=== PATIENT | female | born 1975 | race Caucasian/White ===

== ENCOUNTER 2017-10-01 17:36 | Emergency (ER) | payer MEDICAID ==
[2017-10-01 17:49] VITALS: TEMP 99.3
[2017-10-01] MEDS ORDERED: Sodium Chloride 0.9% 1,000 ML IV ONE (17:57)
[2017-10-01 18:28] LABS: BASO # 0.1 K/uL (0.0-0.2); EOS # 0.1 K/uL (0.0-0.7); EOS % 1.2 % (0.0-4.0); HEMOGLOBIN 14.8 g/dL (11.0-16.0); LYMPH # 2.7 K/uL (1.0-4.3); LYMPH % 35.7 % (20.0-40.0); MEAN CORPUSCULAR HEMOGLOBIN 30.6 pg (27.0-31.0); MEAN PLATELET VOLUME 9.3 fL (7.2-11.7); MONO # 0.4 K/uL (0.0-0.8); MONO % 5.6 % (0.0-10.0); NEUT # 4.3 K/uL (1.8-7.0); NEUT % 56.5 % (50.0-75.0); NRBC % 0.1 % (0.0-2.0); RBC 4.84 Mil/uL (3.80-5.20); WHITE BLOOD COUNT 7.6 K/uL (4.8-10.8)
[2017-10-01 18:30] LABS: URINE BILIRUBIN NEGATIVE (NEGATIVE); URINE BLOOD NEGATIVE (NEGATIVE); URINE CLARITY Clear (Clear); URINE COLOR Straw (YELLOW); URINE GLUCOSE (UA) 3+ mg/dL (Normal); URINE LEUKOCYTE ESTERASE NEG Leu/uL (Negative); URINE PROTEIN NEGATIVE (NEGATIVE); URINE UROBILINOGEN NORMAL mg/dL (0.2-1.0)
[2017-10-01 18:34] LABS: HCG,QUALITATIVE URINE NEGATIVE (NEGATIVE)
[2017-10-01 18:43] LABS: ALB/GLOB RATIO 1.2 (1.0-2.1); ALBUMIN 4.2 g/dL (3.5-5.0); ALT/SGPT 28 U/L (9-52); AST/SGOT 26 U/L (14-36); BLOOD UREA NITROGEN 10 mg/dL (7-17); CALCIUM 9.3 mg/dl (8.6-10.4); GFR AFRICAN-AMERICAN > 60; GFR NON-AFRICAN AMERICAN > 60
[2017-10-01] MEDS ORDERED: (Novolin R) Insulin Human Regular 100 units/ml vial IV STA (18:51)
[2017-10-01] MEDS ORDERED: (Novolin R) Insulin Human Regular 100 units/ml vial ONE (19:04)
[2017-10-01 20:03] VITALS: BP 132/71; PULSE 80; RESP 16
[2017-10-01 20:04] VITALS: O2SAT 100
--- NOTE | 2017-10-01 20:04 | C.PDOC ---
Time Seen by Provider: 10/01/17 17:52 Chief Complaint (Nursing): High Blood Sugar History Per: Patient, Family Onset/Duration Of Symptoms: Days (months) Current Symptoms Are (Timing): Still Present Severity: Moderate Current Diabetic Medications: None Associated Infectious Symptoms: Urinary Frequency, Other (Polydipsia) Treatment Prior To Provider Evaluation: None Additional History Per: Prior Records Past Medical History Reviewed: Historical Data, Nursing Documentation, Vital Signs Vital Signs: Last Vital Signs Temp 99.3 F 10/01/17 17:44 Pulse 80 10/01/17 20:02 Resp 16 10/01/17 20:02 BP 132/71 10/01/17 20:02 Pulse Ox 100 10/01/17 20:04 - Medical History PMH: HTN Surgical History: Family History: States: Unknown Family Hx - Social History Hx Tobacco Use: No Hx Alcohol Use: No Hx Substance Use: No - Immunization History Hx Tetanus Toxoid Vaccination: Yes Hx Influenza Vaccination: No Hx Pneumococcal Vaccination: No Review Of Systems Except As Marked, All Systems Reviewed And Found Negative. Constitutional: Negative for: Fever, Weakness Cardiovascular: Negative for: Chest Pain Respiratory: Negative for: Shortness of Breath Gastrointestinal: Negative for: Vomiting, Abdominal Pain Genitourinary: Positive for: Frequency. Negative for: Dysuria, Incontinence, Hematuria Musculoskeletal: Negative for: Neck Pain, Back Pain Skin: Negative for: Rash Neurological: Negative for: Weakness, Numbness, Seizures, Altered Mental Status Physical Exam - Physical Exam Appears: Non-toxic, No Acute Distress Skin: Normal Color, Warm, Dry, No Rash Head: Atraumatic, Normacephalic Eye(s): bilateral: Normal Inspection, PERRL, EOMI Neck: Normal ROM, Supple Cardiovascular: Rhythm Regular Respiratory: Normal Breath Sounds, No Accessory Muscle Use Gastrointestinal/Abdominal: Soft, No Tenderness Back: No CVA Tenderness Extremity: Normal ROM, No Pedal Edema Neurological/Psych: Oriented x3, Normal Speech, Normal Cognition, Normal Motor, Normal Sensation ED Course And Treatment - Laboratory Results Result Diagrams: 10/01/17 18:20 10/01/17 18:20 Lab Interpretation: Abnormal Interpretation Of Abnormal: Hyperglycemia Urine POC: Negative O2 Sat by Pulse Oximetry: 100 Pulse Ox Interpretation: Normal Progress - Interventions Interventions:: Observation, Intravenous fluid - Medications Administered Intravenous: Other (Insulin) - Data Reviewed Data Reviewed: Lab, Old records - Patient Status Patient status: Mostly improved - Continuity of Care Discussed patient case with:: Patient, Family-HIPPA compliant, ED Nurse - Patient Plan Patient Plan: Discharge, F/U with PCP Disposition Counseled Patient/Family Regarding: Studies Performed, Diagnosis, Need For Followup, Rx Given - Disposition Referrals: [facility] [Outside] Disposition: HOME/ ROUTINE Disposition Time: 20:07 Condition: IMPROVED Additional Instructions: Follow up in the clinic within 1-2 weeks for further evaluation and treatment. Return to the ER if you develop worsening of symptoms or if you have any other concerns. Prescriptions: metFORMIN [glucOPHAGE] 500 mg PO BID #60 tab Instructions: Diabetes Type 2 (DC) Print Language: GUAMANIAN - Clinical Impression Clinical Impression: New onset type 2 diabetes mellitus
== END 2017-10-01 20:32 | disposition home or self-care (01) ==
LOC: C.ER 17:36
DX: E11.9 Type 2 diabetes mellitus without complications (principal); I10 Essential (primary) hypertension
CPT/HCPCS: 80053; 81001; 82009; 82948; 83036; 84703; 85025; 99284; J7030

== ENCOUNTER 2017-10-11 09:00 | Emergency (ER) | payer MEDICAID ==
[2017-10-11 09:18] VITALS: O2SAT 100
[2017-10-11] MEDS ORDERED: Sodium Chloride 0.9% 1,000 ML IV STA (09:40)
[2017-10-11] MEDS ORDERED: Sodium Chloride 0.9% 1,000 ML ONE ×2 (09:47→10:41)
[2017-10-11 09:56] LABS: BASO % 0.6 % (0.0-2.0); EOS # 0.1 K/uL (0.0-0.7); EOS % 0.9 % (0.0-4.0); HEMOGLOBIN 15.4 g/dL (11.0-16.0); LYMPH # 2.3 K/uL (1.0-4.3); LYMPH % 36.9 % (20.0-40.0); MEAN CELL VOLUME 90.8 fL (81.0-99.0); MEAN CORPUSCULAR HEMOGLOBIN 31.1 pg (27.0-31.0); MEAN CORPUSCULAR HGB CONC 34.2 g/dL (33.0-37.0); MEAN PLATELET VOLUME 9.6 fL (7.2-11.7); MONO # 0.5 K/uL (0.0-0.8); MONO % 7.6 % (0.0-10.0); NEUT # 3.3 K/uL (1.8-7.0); RBC 4.97 Mil/uL (3.80-5.20); RED CELL DISTRIBUTION WIDTH 12.9 % (11.5-14.5); WHITE BLOOD COUNT 6.2 K/uL (4.8-10.8)
[2017-10-11 10:11] LABS: ALB/GLOB RATIO 1.2 (1.0-2.1); ALBUMIN 4.1 g/dL (3.5-5.0); ALT/SGPT 32 U/L (9-52); AST/SGOT 27 U/L (14-36); BLOOD UREA NITROGEN 10 mg/dL (7-17); CALCIUM 9.1 mg/dl (8.6-10.4); GFR AFRICAN-AMERICAN > 60; GFR NON-AFRICAN AMERICAN > 60; HCG,QUALITATIVE URINE NEGATIVE (NEGATIVE); LIPASE 381 U/L (23-300)
[2017-10-11 10:14] LABS: SQUAMOUS EPITHIAL 4 /hpf (0-5); URINE BACTERIA RARE (<OCC); URINE BILIRUBIN NEGATIVE (NEGATIVE); URINE BLOOD NEGATIVE (NEGATIVE); URINE CLARITY Hazy (Clear); URINE COLOR Yellow (YELLOW); URINE GLUCOSE (UA) 3+ mg/dL (Normal); URINE LEUKOCYTE ESTERASE NEG Leu/uL (Negative); URINE PROTEIN NEGATIVE (NEGATIVE); URINE UROBILINOGEN NORMAL mg/dL (0.2-1.0)
[2017-10-11] MEDS ORDERED: Sodium Chloride 0.9% 1,000 ML IV ONE (10:39)
[2017-10-11 12:01] VITALS: RESP 18
--- NOTE | 2017-10-11 12:12 | CT ---
PROCEDURE: CT HEAD WITHOUT CONTRAST. HISTORY: blurred vision COMPARISON: None available. TECHNIQUE: Axial computed tomography images were obtained through the head/brain without intravenous contrast. Radiation dose: Total exam DLP = 923 mGy-cm. This CT exam was performed using one or more of the following dose reduction techniques: Automated exposure control, adjustment of the mA and/or kV according to patient size, and/or use of iterative reconstruction technique. FINDINGS: HEMORRHAGE: No intracranial hemorrhage. BRAIN: No mass effect or edema. No atrophy or chronic microvascular ischemic changes. VENTRICLES: Unremarkable. No hydrocephalus. CALVARIUM: Unremarkable. PARANASAL SINUSES: Unremarkable as visualized. No significant inflammatory changes. MASTOID AIR CELLS: Unremarkable as visualized. No inflammatory changes. OTHER FINDINGS: None. IMPRESSION: No acute intracranial abnormality. If symptoms persist, consider correlation with MRI.
--- NOTE | 2017-10-11 13:28 | C.PDOC ---
History Of Present Illness 42-year-old female, presents to the emergency department with complaints of blurred vision. Patient states that two days ago, she was seen in clinic and diagnosed with new onset diabetes. Patient started taking Metformin, and states she has some blurred vision. Pt reports checking blood sugar at home and it was within normal limits. She denies nausea/vomiting, fever, chills, chest pain, back pain or any other associated symptoms. No other complaints at this time. Chief Complaint (Nursing): High Blood Sugar History Per: Patient History/Exam Limitations: no limitations Onset/Duration Of Symptoms: Days Current Symptoms Are (Timing): Still Present Severity: Moderate Past Medical History Reviewed: Historical Data, Nursing Documentation, Vital Signs Vital Signs: Last Vital Signs Temp 99.1 F 10/11/17 14:09 Pulse 76 10/11/17 14:09 Resp 18 10/11/17 14:09 BP 130/92 H 10/11/17 14:09 Pulse Ox 100 10/11/17 17:52 - Medical History PMH: HTN Surgical History: Family History: States: No Known Family Hx - Social History Hx Tobacco Use: No Hx Alcohol Use: No Hx Substance Use: No - Immunization History Hx Tetanus Toxoid Vaccination: (unk) Hx Influenza Vaccination: No Hx Pneumococcal Vaccination: No Review Of Systems Constitutional: Negative for: Fever, Chills Eyes: Positive for: Vision Change Cardiovascular: Negative for: Chest Pain, Palpitations Respiratory: Negative for: Shortness of Breath Gastrointestinal: Negative for: Nausea, Vomiting Musculoskeletal: Negative for: Neck Pain, Back Pain Physical Exam - Physical Exam Appears: Well, Non-toxic, No Acute Distress Skin: Normal Color, Warm, Dry, No Rash Head: Atraumatic, Normacephalic Eye(s): bilateral: Normal Inspection, PERRL, EOMI Nose: Normal Oral Mucosa: Moist Lips: Normal Appearing Neck: Normal ROM Cardiovascular: Rhythm Regular, No Murmur Respiratory: Normal Breath Sounds, No Accessory Muscle Use Gastrointestinal/Abdominal: Soft, No Tenderness Back: Normal Inspection Extremity: Normal ROM, No Deformity, No Swelling Neurological/Psych: Oriented x3, Normal Speech ED Course And Treatment - Laboratory Results Result Diagrams: 10/11/17 09:47 10/11/17 09:47 O2 Sat by Pulse Oximetry: 100 (RA) Pulse Ox Interpretation: Normal - CT Scan/US CT head Other Rad Studies (CT/US): Read By Radiologist, Radiology Report Reviewed CT/US Interpretation: Accession No. : [id number]. Patient Name / ID : MARYANNE NARAYAN / [id number]. Exam Date : 10/11/2017 11:49:20 ( Approved ). Study Comment : Sex / Age : F / 42Y. Creator : Cornelius Staton MD. Dictator : Cornelius Staton MD. Shoe Repair Cobbler : Tube Coremaker : Cornelius Staton MD. Approver2 : Report Date : 10/11/2017 12:11:00. My Comment : . PROCEDURE: CT HEAD WITHOUT CONTRAST. HISTORY: blurred vision. COMPARISON: None available. TECHNIQUE: Axial computed tomography images were obtained through the head/brain without intravenous contrast. Radiation dose: Total exam DLP = 923 mGy-cm. This CT exam was performed using one or more of the following dose reduction techniques: Automated exposure control, adjustment of the mA and/or kV according to patient size, and/or use of iterative reconstruction technique. FINDINGS: HEMORRHAGE: No intracranial hemorrhage. BRAIN: No mass effect or edema. No atrophy or chronic microvascular ischemic changes. VENTRICLES: Unremarkable. No hydrocephalus. CALVARIUM: Unremarkable. PARANASAL SINUSES: Unremarkable as visualized. No significant inflammatory changes. MASTOID AIR CELLS: Unremarkable as visualized. No inflammatory changes. OTHER FINDINGS: None. IMPRESSION: No acute intracranial abnormality. If symptoms persist, consider correlation with MRI. Progress Note: Pt was treated with IV fluid. On re-evaluation FS 188 mg/dl. No neuro deficict. Patient is stable to be d/c home with PMD and Baby Formula Worker follow up. Disposition - Disposition Referrals: [facility] [Staff Provider] - Disposition: HOME/ ROUTINE Disposition Time: 13:55 Condition: IMPROVED Additional Instructions: Follow up with Baby Formula Worker within 2-3 days. Return to ED if feel worse. Instructions: Type 2 Diabetes, Diabetic Retinopathy, Diabetes Diet , Blood Glucose Monitoring Forms: [employer] (Tajik), Work Excuse Print Language: TAMAZIGHT - Clinical Impression Clinical Impression: DM type 2 (diabetes mellitus, type 2), Blurred vision, bilateral - Scribe Statement The provider has reviewed the documentation as recorded by the Scribe (Tricia Johnson) All medical record entries made by the Scribe were at my direction and personally dictated by me. I have reviewed the chart and agree that the record accurately reflects my personal performance of the history, physical exam, medical decision making, and the department course for this patient. I have also personally directed, reviewed, and agree with the discharge instructions and disposition.
[2017-10-11 14:09] VITALS: BP 130/92; PULSE 76; TEMP 99.1
== END 2017-10-11 14:10 | disposition home or self-care (01) ==
LOC: C.ER 09:00
DX: E11.65 Type 2 diabetes mellitus with hyperglycemia (principal); Z79.84 Long term (current) use of oral hypoglycemic drugs; H53.8 Other visual disturbances
CPT/HCPCS: 70450; 80053; 81001; 82948; 83690; 84703; 85025; 96360; 96361; 99285; J7030

== ENCOUNTER 2017-12-10 10:49 | Emergency (ER) | payer MEDICAID ==
[2017-12-10 10:52] VITALS: O2SAT 99
[2017-12-10] MEDS ORDERED: Sodium Chloride 0.9% 1,000 ML IV ONE (11:17)
--- NOTE | 2017-12-10 11:36 | C.PDOC ---
History Of Present Illness 42 year old female with a history of diabetes currently taking Metformin reports falling at work today at 10:30AM. Patient reports that she felt dizzy and reports nausea, but denies chest pain and shortness of breath. Time Seen by Provider: 12/10/17 10:54 Chief Complaint (Nursing): High Blood Sugar History Per: Patient History/Exam Limitations: no limitations Onset/Duration Of Symptoms: Hrs Current Symptoms Are (Timing): Still Present Current Diabetic Medications: Other (Metformin) Associated Infectious Symptoms: Nausea. denies: Other (chest pain, shortness of breath) Past Medical History Reviewed: Historical Data, Nursing Documentation, Vital Signs Vital Signs: Last Vital Signs Temp 99.0 F 12/10/17 10:55 Pulse 65 12/10/17 13:15 Resp 18 12/10/17 13:15 BP 126/71 12/10/17 13:15 Pulse Ox 99 12/10/17 13:15 - Medical History PMH: HTN Surgical History: Family History: States: No Known Family Hx - Social History Hx Tobacco Use: No Hx Alcohol Use: No Hx Substance Use: No - Immunization History Hx Tetanus Toxoid Vaccination: (unk) Hx Influenza Vaccination: No Hx Pneumococcal Vaccination: No Review Of Systems Except As Marked, All Systems Reviewed And Found Negative. Gastrointestinal: Positive for: Nausea Neurological: Positive for: Dizziness Physical Exam - Physical Exam Appears: Non-toxic, No Acute Distress Skin: Warm, Dry Head: Atraumatic, Normacephalic Eye(s): bilateral: Normal Inspection Neck: Normal, Supple Chest: Symmetrical Cardiovascular: Rhythm Regular, No Murmur Respiratory: Normal Breath Sounds, No Rales, No Rhonchi, No Wheezing Gastrointestinal/Abdominal: Normal Exam, Soft, No Tenderness, No Guarding, No Rebound Extremity: Normal ROM (all extremities) Neurological/Psych: Oriented x3, Normal Speech, Normal Cognition ED Course And Treatment - Laboratory Results Result Diagrams: 12/10/17 11:38 12/10/17 12:50 O2 Sat by Pulse Oximetry: 99 (RA) Pulse Ox Interpretation: Normal Medical Decision Making Medical Decision Making: Assessment: Hyperglycemia Plan: CT Head w/o Contrast EKG CMP Magnesium Troponin CBC CXR Glucose POC Antivert 12.5 mg PO NaCl IV Fluids Sudafed 30mg PO Zofran 4mg IVP Urinalysis 1355 - patient states improvement. Will discharge home to follow up with pmd within 2 days Disposition Counseled Patient/Family Regarding: Studies Performed, Diagnosis, Need For Followup, Rx Given - Disposition Referrals: Donna Lang MD [Staff Provider] - Disposition: HOME/ ROUTINE Disposition Time: 13:55 Condition: STABLE Additional Instructions: follow up with your doctor within 2 days call to make an appointment take medications as prescribed return to ER if symptoms worsens or progress Prescriptions: Meclizine [Meclizine*] 25 mg PO TID PRN #15 tab PRN Reason: Dizziness Ondansetron ODT [Zofran ODT] 4 mg PO TID PRN #12 odt PRN Reason: Nausea/Vomiting Pseudoephedrine HCl [Sudafed] 30 mg PO QID PRN #15 tablet PRN Reason: Dizziness Instructions: Vertigo (a Type of Dizziness) Forms: Gen Discharge Inst Belarusian, [employer] (Belarusian) - Clinical Impression Clinical Impression: Dizziness - Scribe Statement The provider has reviewed the documentation as recorded by the Scribe (Tate Krishnamurthy) Provider Attestation: All medical record entries made by the Scribe were at my direction and personally dictated by me. I have reviewed the chart and agree that the record accurately reflects my personal performance of the history, physical exam, medical decision making, and the department course for this patient. I have also personally directed, reviewed, and agree with the discharge instructions and disposition.
[2017-12-10 11:43] LABS: BASO # 0.1 K/uL (0.0-0.2); BASO % 1.9 % (0.0-2.0); EOS # 0.1 K/uL (0.0-0.7); EOS % 1.1 % (0.0-4.0); LYMPH # 2.2 K/uL (1.0-4.3); LYMPH % 35.5 % (20.0-40.0); MEAN CELL VOLUME 90.2 fL (81.0-99.0); MEAN CORPUSCULAR HGB CONC 34.4 g/dL (33.0-37.0); MEAN PLATELET VOLUME 9.3 fL (7.2-11.7); MONO # 0.4 K/uL (0.0-0.8); MONO % 6.5 % (0.0-10.0); NEUT # 3.4 K/uL (1.8-7.0); NRBC % 0.1 % (0.0-2.0); RBC 4.3 Mil/uL (3.80-5.20); RED CELL DISTRIBUTION WIDTH 12.7 % (11.5-14.5); WHITE BLOOD COUNT 6.2 K/uL (4.8-10.8)
[2017-12-10 11:44] LABS: HEMOGLOBIN 13.3 g/dL (11.0-16.0)
[2017-12-10] MEDS ORDERED: Sodium Chloride 0.9% 1,000 ML ONE (11:45)
--- NOTE | 2017-12-10 12:04 | RAD ---
Date of service: 12/10/2017 HISTORY: SOB COMPARISON: 02/14/2017 TECHNIQUE: Chest PA and lateral FINDINGS: LUNGS: No active pulmonary disease. PLEURA: No significant pleural effusion identified. No pneumothorax apparent. CARDIOVASCULAR: Normal. OSSEOUS STRUCTURES: No significant abnormalities. VISUALIZED UPPER ABDOMEN: Normal. OTHER FINDINGS: None. IMPRESSION: No active disease.
--- NOTE | 2017-12-10 12:32 | CT ---
Date of service: 12/10/2017 PROCEDURE: CT HEAD WITHOUT CONTRAST. HISTORY: dizziness COMPARISON: Comparison is made with 10/10/2017. TECHNIQUE: Axial computed tomography images were obtained through the head/brain without intravenous contrast. Radiation dose: Total exam DLP = 916.44 mGy-cm. This CT exam was performed using one or more of the following dose reduction techniques: Automated exposure control, adjustment of the mA and/or kV according to patient size, and/or use of iterative reconstruction technique. FINDINGS: HEMORRHAGE: No intracranial hemorrhage. BRAIN: No mass effect or edema. No atrophy or chronic microvascular ischemic changes. VENTRICLES: Unremarkable. No hydrocephalus. CALVARIUM: Unremarkable. PARANASAL SINUSES: Unremarkable as visualized. No significant inflammatory changes. MASTOID AIR CELLS: Unremarkable as visualized. No inflammatory changes. OTHER FINDINGS: None. IMPRESSION: No evidence of acute intracranial hemorrhage mass effect or midline shift. No significant interval change noted since the previous exam.
[2017-12-10 13:15] LABS: ALB/GLOB RATIO 1.2 (1.0-2.1); ALBUMIN 3.5 g/dL (3.5-5.0); ALT/SGPT 22 U/L (9-52); AST/SGOT 16 U/L (14-36); BLOOD UREA NITROGEN 13 mg/dL (7-17); GFR NON-AFRICAN AMERICAN > 60
[2017-12-10 13:16] VITALS: PULSE 65; RESP 18
[2017-12-10 13:20] LABS: SQUAMOUS EPITHIAL 17 /hpf (0-5); URINE BACTERIA RARE (<OCC); URINE BILIRUBIN NEGATIVE (NEGATIVE); URINE BLOOD 3+ (NEGATIVE); URINE CLARITY Hazy (Clear); URINE COLOR Amber (YELLOW); URINE GLUCOSE (UA) 3+ mg/dL (Normal); URINE LEUKOCYTE ESTERASE NEG Leu/uL (Negative); URINE PROTEIN 1+ mg/dL (NEGATIVE); URINE UROBILINOGEN NORMAL mg/dL (0.2-1.0)
[2017-12-10 14:35] VITALS: BP 115/67; TEMP 98.6
--- NOTE | 2017-12-12 | CARD ---
APPROVED REPORT Date of service: 12/10/2017 EKG Measurement Heart [id number] <Conclusion> Normal sinus rhythm Minimal voltage criteria for LVH, may be normal variant Cannot rule out Anterior infarct, age undetermined Abnormal ECG
== END 2017-12-10 14:35 | disposition home or self-care (01) ==
LOC: C.ER 10:49
DX: R42 Dizziness and giddiness (principal)
CPT/HCPCS: 70450; 71046; 80053; 81001; 82948; 83735; 84484; 85025; 93005; 96361; 96374; 99285; J2405; J7030

== ENCOUNTER 2018-06-01 13:27 | Inpatient (IN) | payer MEDICAID, SELFPAY ==
[2018-06-01 14:12] LABS: BASO # 0.1 K/uL (0.0-0.2); BASO % 0.6 % (0.0-2.0); EOS # 0.1 K/uL (0.0-0.7); EOS % 1.4 % (0.0-4.0); LYMPH # 2.9 K/uL (1.0-4.3); LYMPH % 32.6 % (20.0-40.0); MEAN CELL VOLUME 91.1 fL (81.0-99.0); MEAN CORPUSCULAR HEMOGLOBIN 30.1 pg (27.0-31.0); MEAN CORPUSCULAR HGB CONC 33.1 g/dL (33.0-37.0); MONO # 0.5 K/uL (0.0-0.8); MONO % 5.8 % (0.0-10.0); NEUT # 5.2 K/uL (1.8-7.0); NEUT % 59.6 % (50.0-75.0); NRBC % 0.1 % (0.0-2.0); RBC 5.17 Mil/uL (3.80-5.20); RED CELL DISTRIBUTION WIDTH 12.8 % (11.5-14.5); WHITE BLOOD COUNT 8.8 K/uL (4.8-10.8)
[2018-06-01 14:17] LABS: HEMOGLOBIN 15.6 g/dL (11.0-16.0)
[2018-06-01 14:22] LABS: PROTHROMBIN TIME 11.3 SECONDS (9.7-12.2)
[2018-06-01 14:30] LABS: ALB/GLOB RATIO 1.3 (1.0-2.1); ALBUMIN 4.6 g/dL (3.5-5.0); ALT/SGPT 31 U/L (9-52); AST/SGOT 28 U/L (14-36); BLOOD UREA NITROGEN 15 mg/dL (7-17); CALCIUM 9.2 mg/dl (8.6-10.4); GFR NON-AFRICAN AMERICAN > 60
[2018-06-01 14:49] LABS: HCG,QUALITATIVE URINE NEGATIVE (NEGATIVE)
[2018-06-01 14:57] LABS: SQUAMOUS EPITHIAL 26 /hpf (0-5); URINE BILIRUBIN NEGATIVE (NEGATIVE); URINE BLOOD NEGATIVE (NEGATIVE); URINE CLARITY Hazy (Clear); URINE COLOR Amber (YELLOW); URINE GLUCOSE (UA) 1+ mg/dL (Normal); URINE LEUKOCYTE ESTERASE NEG Leu/uL (Negative); URINE PROTEIN 2+ mg/dL (NEGATIVE); URINE UROBILINOGEN NORMAL mg/dL (0.2-1.0)
--- NOTE | 2018-06-01 14:58 | C.PDOC ---
History Of Present Illness Patient presents to ED c/o substernal chest pain that is constant and associated with SOB. She admits to recent URI with out, however that resolved several days ago. Patient took ASA 81mg and her Lisinopril prior to coming ED. She denies current cough, fever, abdominal pain, nausea/vomiting, rash, cardiac history in immediate family. PMHx: HTN, DM, Time Seen by Provider: 06/01/18 13:42 Chief Complaint (Nursing): Chest Pain History Per: Patient, Family History/Exam Limitations: no limitations Onset/Duration Of Symptoms: Hrs Current Symptoms Are (Timing): Still Present Severity: Moderate Quality: "Pain" Past Medical History Reviewed: Historical Data, Nursing Documentation, Vital Signs Vital Signs: Last Vital Signs Temp 97.9 F 06/01/18 13:39 Pulse 100 H 06/01/18 14:16 Resp 21 06/01/18 14:16 BP 140/88 06/01/18 14:16 Pulse Ox 98 06/01/18 14:16 - Medical History PMH: HTN Surgical History: Family History: States: No Known Family Hx - Social History Hx Tobacco Use: No Hx Alcohol Use: No Hx Substance Use: No - Immunization History Hx Tetanus Toxoid Vaccination: (unk) Hx Influenza Vaccination: No Hx Pneumococcal Vaccination: No Review Of Systems Cardiovascular: Positive for: Chest Pain. Negative for: Palpitations Respiratory: Positive for: Shortness of Breath Gastrointestinal: Negative for: Nausea, Vomiting, Abdominal Pain, Diarrhea Genitourinary: Negative for: Dysuria Skin: Negative for: Rash Neurological: Negative for: Weakness, Numbness, Headache, Dizziness Physical Exam - Physical Exam Appears: Non-toxic, In Acute Distress (in mild to moderate pain, speaking in full sentences) Skin: Normal Color, Warm, Dry Eye(s): bilateral: Normal Inspection Oral Mucosa: Moist Chest: Symmetrical Cardiovascular: Rhythm Regular Respiratory: Normal Breath Sounds, No Rales, No Rhonchi, No Wheezing Gastrointestinal/Abdominal: Normal Exam, Bowel Sounds, Soft, No Tenderness, Other (obese) Extremity: Normal ROM, No Pedal Edema, No Calf Tenderness Pulses: Left Dorsalis Pedis: Normal, Right Dorsalis Pedis: Normal Neurological/Psych: Oriented x3 ED Course And Treatment - Laboratory Results Result Diagrams: 06/01/18 14:06 06/01/18 14:06 Lab Results: PT 11.3 SECONDS (9.7-12.2) 06/01/18 14:06 INR 1.0 06/01/18 14:06 APTT 26 SECONDS (21-34) 06/01/18 14:06 D-Dimer, Quantitative 292 ng/mlDDU (0-243) H 06/01/18 14:06 Total Bilirubin 0.6 mg/dL (0.2-1.3) 06/01/18 14:06 AST 28 U/L (14-36) 06/01/18 14:06 ALT 31 U/L (9-52) 06/01/18 14:06 Alkaline Phosphatase 89 U/L (38-126) 06/01/18 14:06 Total Protein 8.2 g/dL (6.3-8.3) 06/01/18 14:06 Albumin 4.6 g/dL (3.5-5.0) 06/01/18 14:06 Globulin 3.6 gm/dL (2.2-3.9) 06/01/18 14:06 Albumin/Globulin Ratio 1.3 (1.0-2.1) 06/01/18 14:06 Urine HCG, Qual Negative (NEGATIVE) 06/01/18 14:17 Urine HCG, Qual Negative (NEGATIVE) 06/01/18 14:17 ECG: Interpreted By Me, Viewed By Me (NSR 97 bpm, left axis deviation, no acute ST/T wave changes) ECG Interpretation: Normal O2 Sat by Pulse Oximetry: 98 (RA) Pulse Ox Interpretation: Normal - CT Scan/US CTA CHEST Other Rad Studies (CT/US): Read By Radiologist, Radiology Report Reviewed CT/US Interpretation: Accession No. : [id number]. Patient Name / ID : MARYANNE NARAYAN / [id number]. Exam Date : 06/01/2018 15:32:40 ( Approved ). Study Comment : Sex / Age : F / 42Y. Creator : Vahid Parada. Dictator : Lalito Teran MD. Smelter Liner : Adolescent Counselor : Lalito Teran MD. Approver2 : Report Date : 06/01/2018 15:47:30. My Comment : . Date of service: 06/01/2018. PROCEDURE: CT Chest with contrast (Pulmonary Angiogram). HISTORY: chest pain, dyspnea, elevated d-dimer, r/o PE. COMPARISON: None available. TECHNIQUE: Axial computed tomography images were obtained of the chest in the pulmonary arterial phase of enhancement. Coronal and sagittal reformatted images were created and reviewed. Intravenous contrast dose: 100 mL of Visipaque 320 intravenously. Radiation dose: Total exam DLP = 601.83 mGy-cm. This CT exam was performed using one or more of the following dose reduction techniques: Automated exposure control, adjustment of the mA and/or kV according to patient size, and/or use of iterative reconstruction technique. FINDINGS: PULMONARY ARTERIES: No evidence of filling defect in the main pulmonary arteries. The assessment of the peripheral subsegmental pulmonary arteries is limited in this study. AORTA: No acute findings. No thoracic aortic aneurysm. No aortic atherosclerotic calcification or mural plaque present. LUNGS: Possible mild pulmonary vascular congestion. No nodule, mass or pulmonary consolidation. PLEURAL SPACES: Unremarkable. No effusion or pneumothorax. HEART: Mild cardiomegaly is noted. No significant pericardial effusion. LYMPH NODES: No lymphadenopathy. BONES, CHEST WALL: Unremarkable. No fracture or destructive lesion. OTHER FINDINGS: Unremarkable. IMPRESSION: No evidence of central pulmonary embolus. The assessment of the peripheral small pulmonary artery is suboptimal in this study. Possible mild cardiomegaly and mild pulmonary vascular congestion. Mild diffuse esophageal mucosal thickening. Progress Note: Blood work, EKG, CXR ordered and reviewed. Patient given PO ASA. IV morphine ordered, but patient refused - given PO tylenol instead. 5:15PM- Dr. Glenna Lang is aware - spoke with Dr. Bill, states Dr. Agustin Mendoza is covering him for cardiology. Pending call back. 5:25pm- Dr. Mendoza states he will se patient for cardiology, would like medicine drafter (cad) electronic for Dr. Garza. Disposition - Disposition Forms: [employer] ([place] Island[place])
[2018-06-01 15:01] LABS: B-TYPE NATRIURETIC PEPTIDE 19.1 pg/mL (0-450); CK-MB 1.45 ng/mL (0.0-3.38)
[2018-06-01] MEDS ORDERED: Iodixanol 320 MG/ML 100 ML BOTTLE IV ONE (15:04)
--- NOTE | 2018-06-01 15:47 | RAD ---
Date of service: 06/01/2018 PROCEDURE: CHEST RADIOGRAPH, 1 VIEW HISTORY: cp COMPARISON: Comparison is made with 12/11/2027 FINDINGS: LUNGS: No evidence of new infiltrate or consolidation in the lungs. PLEURA: No pneumothorax or pleural fluid seen. CARDIOVASCULAR: No aortic atherosclerotic calcification present. Normal. OSSEOUS STRUCTURES: No significant abnormalities. VISUALIZED UPPER ABDOMEN: Normal. OTHER FINDINGS: None. IMPRESSION: Suboptimal portable study. No evidence of acute pulmonary disease.
--- NOTE | 2018-06-01 16:21 | CT ---
Date of service: 06/01/2018 PROCEDURE: CT Chest with contrast (Pulmonary Angiogram) HISTORY: chest pain, dyspnea, elevated d-dimer, r/o PE COMPARISON: None available. TECHNIQUE: Axial computed tomography images were obtained of the chest in the pulmonary arterial phase of enhancement. Coronal and sagittal reformatted images were created and reviewed. Intravenous contrast dose: 100 mL of Visipaque 320 intravenously. Radiation dose: Total exam DLP = 601.83 mGy-cm. This CT exam was performed using one or more of the following dose reduction techniques: Automated exposure control, adjustment of the mA and/or kV according to patient size, and/or use of iterative reconstruction technique. FINDINGS: PULMONARY ARTERIES: No evidence of filling defect in the main pulmonary arteries. The assessment of the peripheral subsegmental pulmonary arteries is limited in this study. AORTA: No acute findings. No thoracic aortic aneurysm. No aortic atherosclerotic calcification or mural plaque present. LUNGS: Possible mild pulmonary vascular congestion. No nodule, mass or pulmonary consolidation. PLEURAL SPACES: Unremarkable. No effusion or pneumothorax. HEART: Mild cardiomegaly is noted. No significant pericardial effusion. LYMPH NODES: No lymphadenopathy. BONES, CHEST WALL: Unremarkable. No fracture or destructive lesion OTHER FINDINGS: Unremarkable. IMPRESSION: No evidence of central pulmonary embolus. The assessment of the peripheral small pulmonary artery is suboptimal in this study. Possible mild cardiomegaly and mild pulmonary vascular congestion. Mild diffuse esophageal mucosal thickening.
[2018-06-01] MEDS ORDERED: Enoxaparin 40 mg Syringe SC STA (17:07)
[2018-06-01] MEDS ORDERED: Enoxaparin 120 mg Syringe SC STA (17:15)
[2018-06-01 21:11] LABS: CK-MB 1.64 ng/mL (0.0-3.38); TROPONIN I 0.204 ng/mL (0.00-0.120)
[2018-06-02] MEDS ORDERED: DiphenhydrAMINE 50 mg/ml Inj IVP STA (05:56)
[2018-06-02 07:18] LABS: CK-MB 1.25 ng/mL (0.0-3.38); TROPONIN I 0.085 ng/mL (0.00-0.120)
[2018-06-02] MEDS: (Novolin R) Insulin Human Regular 100 units/ml vial SC SCH ×3 (08:01→17:13)
[2018-06-02] MEDS: Pantoprazole 40 mg EC Tab PO SCH (09:31)
[2018-06-02] MEDS: Metoprolol Succinate 25 mg XL Tab PO SCH (09:31)
[2018-06-02] MEDS ORDERED: Enoxaparin 40 mg Syringe SC SCH (10:00)
[2018-06-02] MEDS ORDERED: Sodium Chloride 0.9% 1,000 ML IV SCH (10:30)
[2018-06-02] MEDS ORDERED: Iodixanol 320 MG/ML 200 ML BOTTLE IV ONE (11:48)
[2018-06-02] MEDS ORDERED: Midazolam 2 MG/2 ML VIAL ONE ×2 (11:48→12:00)
[2018-06-02] MEDS ORDERED: Verapamil 2 ML ONE (11:51)
[2018-06-02] MEDS ORDERED: Nitroglycerin 50mg in D5W 50 MG/250 ML BOTTLE IV ONE (11:52)
[2018-06-02 12:01] LABS: BASO % 0.2 % (0.0-2.0); EOS # 0.1 K/uL (0.0-0.7); EOS % 1.8 % (0.0-4.0); LYMPH # 2.1 K/uL (1.0-4.3); LYMPH % 27.2 % (20.0-40.0); MEAN CELL VOLUME 91.5 fL (81.0-99.0); MEAN CORPUSCULAR HEMOGLOBIN 30.4 pg (27.0-31.0); MEAN CORPUSCULAR HGB CONC 33.2 g/dL (33.0-37.0); MEAN PLATELET VOLUME 9.8 fL (7.2-11.7); MONO # 0.4 K/uL (0.0-0.8); MONO % 4.6 % (0.0-10.0); NEUT # 5.1 K/uL (1.8-7.0); NEUT % 66.2 % (50.0-75.0); NRBC % 0.1 % (0.0-2.0); RBC 4.93 Mil/uL (3.80-5.20); WHITE BLOOD COUNT 7.8 K/uL (4.8-10.8)
[2018-06-02 12:12] LABS: ALB/GLOB RATIO 1.2 (1.0-2.1); ALBUMIN 4.2 g/dL (3.5-5.0); ALT/SGPT 21 U/L (9-52); AST/SGOT 37 U/L (14-36); BLOOD UREA NITROGEN 15 mg/dL (7-17); CALCIUM 9.1 mg/dl (8.6-10.4); GFR NON-AFRICAN AMERICAN > 60
--- NOTE | 2018-06-02 12:23 | CP.PCM.PN ---
Subjective - Date & Time of Evaluation Date of Evaluation: 06/02/18 Time of Evaluation: 12:20 - Subjective Subjective: Post Cath Note: Indication: Elevated Troponin Cath findings: Access: Right Radial 1. L Main: Patent 2. LAD/Diag: Mid LAD has intra muscular course 30% stenosis 3. L Cx/OM: Patent 4. RCA: Dominant and patent 5. LV: EF: 70%, no WMA, EDP 8, No A/P: Non Obstructive Coronaries and Normal EF Medical management Objective - Vital Signs/Intake and Output Vital Signs (last 24 hours): Temp Pulse Resp BP Pulse Ox 98.3 F 93 H 20 123/83 98 06/02/18 07:30 06/02/18 09:30 06/02/18 07:30 06/02/18 09:30 06/02/18 07:30 - Medications Medications: Current Medications Aspirin (Aspirin Chewable) 81 mg PO DAILY [facility] Last Admin: 06/02/18 09:31 Dose: 81 mg Enoxaparin Sodium (Lovenox) 60 mg SC Q12 [facility] Hydrochlorothiazide (Microzide) 12.5 mg PO DAILY [facility] Last Admin: 06/02/18 09:31 Dose: 12.5 mg Sodium Chloride (Sodium Chloride 0.9%) 1,000 mls @ 50 mls/hr IV .Q20H [facility] Influenza Virus Vaccine (Flucelvax Quad [id number] Syr) 60 mcg IM .ONCE ONE Stop: 06/04/18 12:01 Insulin Human Regular (Novolin R) 0 unit SC ACHS [facility]; Protocol Last Admin: 06/02/18 11:42 Dose: Not Given Lisinopril (Zestril) 10 mg PO DAILY [facility] Last Admin: 06/02/18 09:31 Dose: 10 mg Meclizine HCl (Antivert) 25 mg PO TID PRN PRN Reason: Dizziness Metoprolol Succinate (Toprol Xl) 25 mg PO DAILY [facility] Last Admin: 06/02/18 09:31 Dose: 25 mg Ondansetron HCl (Zofran Odt) 4 mg PO TID PRN PRN Reason: Nausea/Vomiting Pantoprazole Sodium (Protonix Ec Tab) 40 mg PO DAILY [facility] Last Admin: 06/02/18 09:31 Dose: 40 mg Pneumococcal Polyvalent Vaccine (Pneumovax 23 Vaccine) 0.5 ml IM .ONCE ONE Stop: 06/04/18 12:01 Rosuvastatin Calcium (Crestor) 20 mg PO HS LEONARDO - Labs Labs: 06/02/18 11:29 06/02/18 11:29 PT 11.3 SECONDS (9.7-12.2) 06/01/18 14:06 INR 1.0 06/01/18 14:06 APTT 26 SECONDS (21-34) 06/01/18 14:06
--- NOTE | 2018-06-02 16:11 | CARD ---
APPROVED REPORT Date of service: 06/02/2018 EKG Measurement Heart [id number] <Conclusion> Normal sinus rhythm Possible Left atrial enlargement Possible Inferior infarct, age undetermined Abnormal ECG
--- NOTE | 2018-06-02 20:39 | CP.PCM.HP ---
Present on Admission - Present on Admission Any Indicators Present on Admission: Yes History of Uncontrolled Diabetes: Yes Past Patient History - Infectious Disease Hx of Infectious Diseases: None - Past Medical History & Family History Past Medical History?: Yes - Past Social History Smoking Status: Never Smoked - CARDIAC Hx Cardiac Disorders: Yes Hx Hypertension: Yes - PULMONARY Hx Respiratory Disorders: No - NEUROLOGICAL Hx Neurological Disorder: No - HEENT Hx HEENT Problems: No - RENAL Hx Chronic Kidney Disease: No Hx Dialysis: No - ENDOCRINE/METABOLIC Hx Endocrine Disorders: Yes Hx Diabetes Mellitus Type 2: Yes - HEMATOLOGICAL/ONCOLOGICAL Hx Blood Disorders: Yes (''Elevated Hemoglobin'') - INTEGUMENTARY Hx Dermatological Problems: No - MUSCULOSKELETAL/RHEUMATOLOGICAL Hx Musculoskeletal Disorders: No Hx Falls: No - GASTROINTESTINAL Hx Gastrointestinal Disorders: No - GENITOURINARY/GYNECOLOGICAL Hx Genitourinary Disorders: No - PSYCHIATRIC Hx Psychophysiologic Disorder: No Hx Substance Use: No - SURGICAL HISTORY Hx Surgeries: Yes Hx Section: Yes (x2) Hx Orthopedic Surgery: Yes (RLE TIB/FIB FX) - ANESTHESIA Hx Anesthesia: Yes Hx Anesthesia Reactions: No Meds Allergies/Adverse Reactions: Allergies Allergy/AdvReac Type Severity Reaction Status Date / Time No Known Allergies Allergy Unverified 06/01/18 13:35 Results - Vital Signs Recent Vital Signs: Last Vital Signs Temp 98 F 06/02/18 15:22 Pulse 98 H 06/02/18 15:35 Resp 18 06/02/18 15:22 BP 125/85 06/02/18 15:22 Pulse Ox 97 06/02/18 15:22 - Labs Result Diagrams: 06/02/18 11:29 06/02/18 11:29 Labs: Laboratory Results - last 24 hr 06/01/18 06/01/18 06/02/18 20:31 21:27 05:59 WBC RBC Hgb Hct MCV MCH MCHC RDW Plt Count MPV Neut % (Auto) Lymph % (Auto) [place] % (Auto) Eos % (Auto) Baso % (Auto) Neut # (Auto) Lymph # (Auto) [place] # (Auto) Eos # (Auto) Baso # (Auto) Sodium Potassium Chloride Carbon Dioxide Anion Gap BUN Creatinine Est GFR ( Amer) Est GFR (Non-Af Amer) POC Glucose (mg/dL) 198 H Random Glucose Hemoglobin A1c Calcium Total Bilirubin AST ALT Alkaline Phosphatase Total Creatine Kinase 154 H 106 CK-MB (Mass) 1.64 1.25 Troponin I 0.2040 H* 0.0850 Total Protein Albumin Globulin Albumin/Globulin Ratio Triglycerides 1089 H Cholesterol 179 LDL Cholesterol Direct 46 HDL Cholesterol 27 L 06/02/18 06/02/18 06/02/18 05:59 06:25 11:29 WBC 7.8 RBC 4.93 Hgb 15.0 Hct 45.2 MCV 91.5 MCH 30.4 MCHC 33.2 RDW 13.0 Plt Count 297 MPV 9.8 Neut % (Auto) 66.2 Lymph % (Auto) 27.2 [place] % (Auto) 4.6 Eos % (Auto) 1.8 Baso % (Auto) 0.2 Neut # (Auto) 5.1 Lymph # (Auto) 2.1 [place] # (Auto) 0.4 Eos # (Auto) 0.1 Baso # (Auto) 0.0 Sodium Potassium Chloride Carbon Dioxide Anion Gap BUN Creatinine Est GFR ( Amer) Est GFR (Non-Af Amer) POC Glucose (mg/dL) 274 H Random Glucose Hemoglobin A1c 10.1 H D Calcium Total Bilirubin AST ALT Alkaline Phosphatase Total Creatine Kinase CK-MB (Mass) Troponin I Total Protein Albumin Globulin Albumin/Globulin Ratio Triglycerides Cholesterol LDL Cholesterol Direct HDL Cholesterol 06/02/18 11:29 WBC RBC Hgb Hct MCV MCH MCHC RDW Plt Count MPV Neut % (Auto) Lymph % (Auto) [place] % (Auto) Eos % (Auto) Baso % (Auto) Neut # (Auto) Lymph # (Auto) [place] # (Auto) Eos # (Auto) Baso # (Auto) Sodium 132 Potassium 4.2 Chloride 96 L Carbon Dioxide 22 Anion Gap 18 BUN 15 Creatinine 0.7 Est GFR ( Amer) > 60 Est GFR (Non-Af Amer) > 60 POC Glucose (mg/dL) Random Glucose 345 H D Hemoglobin A1c Calcium 9.1 Total Bilirubin 0.9 AST 37 H D ALT 21 Alkaline Phosphatase 91 Total Creatine Kinase CK-MB (Mass) Troponin I Total Protein 7.7 Albumin 4.2 Globulin 3.4 Albumin/Globulin Ratio 1.2 Triglycerides Cholesterol LDL Cholesterol Direct HDL Cholesterol
--- NOTE | 2018-06-02 20:48 | CON ---
DATE: 06/02/2018 CARDIOLOGY CONSULTATION HISTORY OF PRESENT ILLNESS: A 42-year-old obese female was brought in with history of chest pain. Two sets of cardiac enzymes were mildly elevated. EKG showed minor nonspecific ST-T changes, some small Q's in III and aVF. She is a diabetic, hypertensive, and she also has probably high cholesterol. She is under the care of Dr. Jarett Lang. PAST MEDICAL HISTORY: History of , otherwise unremarkable. ALLERGIES: DENIED. FAMILY HISTORY: Negative for premature coronary artery disease. REVIEW OF SYSTEMS: Previously, there was no chest pain, but she had dyspnea on exertion. No peptic ulcer disease, no bleeding disorder, no TIA's, no CVA's, and no OH's in the past. PHYSICAL EXAMINATION: GENERAL: Shows a middle-aged female, who is conscious, alert, and well oriented, in no distress. VITAL SIGNS: She is about 5 feet and 3 inches and weighs 260 pounds. Blood pressure is 136/80, heart rate of 80, respiratory rate of 20, afebrile. HEENT: Head is normal. LUNGS: Clear. CARDIAC: Shows normal S1 and S2 with a soft S4 gallop, soft early systolic murmur in the mitral area. ABDOMEN: Soft. EXTREMITIES: Unremarkable. Distal pulses are intact. LABORATORY DATA: EKG as mentioned above, he has sinus rhythm, nonspecific ST-T changes. Two sets of enzymes were borderline positive. ASSESSMENT: A 42-year-old female with a history of chest pain, suggestive of ischemic in nature. She is diabetic, hypertensive, and obese. The patient will benefit from coronary angiogram. PLAN: Care of plan was explained to the patient and her family, who was at the bedside. Details of the procedure including the benefits, risks, and alternatives, continuing medical therapy were also explained. The patient and the family are agreeable. Care of plan was discussed with Dr. Ross Lisa for catheterization. He is agreeable. He will be scheduled today. We will obtain echocardiogram prior to this catheterization. We will also hold off her metformin and start on IV. Agustin Mendoza MD
[2018-06-02] MEDS: Enoxaparin 120 mg Syringe SC SCH (21:09)
--- NOTE | 2018-06-02 23:26 | CARD ---
APPROVED REPORT Date of service: 06/02/2018 EXAM: Two-dimensional and M-mode echocardiogram with Doppler and color Doppler. INDICATION Dyspnea Chest Pain RISK FACTORS Hypertension 2D DIMENSIONS IVSd1.1 (0.7-1.1cm)LVDd3.5 (3.9-5.9cm) PWd1.2 (0.7-1.1cm)LA Xhdnvg12 (18-58mL) LVDs2.1 (2.5-4.0cm)FS (%) 39.7 % LVEF (%)71.3 (>50%)LVEF (Nelson's)66.86 % M-Mode DIMENSIONS IVSd1.15 (0.7-1.1cm)LVDd3.77 (4.0-5.6cm) PWd0.90 (0.7-1.1cm)FS (%) 39 % LVDs2.29 (2.0-3.8cm)LVEF (%)71 (>50%) Mitral Valve MV E Kcwzmbhb58.0cm/sMV A Ckvypsxd82.4cm/sE/A ratio0.8 TDI Lateral E' Peak V9.06cm/sMedial E' Peak V6.29cm/sE/Lateral E'8.1 E/Medial E'11.6 LEFT VENTRICLE The left ventricle is normal size. There is borderline concentric left ventricular hypertrophy. Left ventricle systolic function is normal. The Ejection Fraction is 65-70%. There is normal LV segmental wall motion. Tissue Doppler imaging reveals abnormal left ventricular diastolic dysfunction. RIGHT VENTRICLE The right ventricle is normal size. There is normal right ventricular wall thickness. The right ventricular systolic function is normal. ATRIA The left atrium size is normal. The right atrium size is normal. The interatrial septum is intact with no evidence for an atrial septal defect. AORTIC VALVE The aortic valve is normal in structure. There is mild aortic regurgitation. There is no aortic valvular stenosis. MITRAL VALVE The mitral valve is normal in structure. There is no evidence of mitral valve prolapse. There is no mitral valve stenosis. Mitral regurgitation is mild. TRICUSPID VALVE The tricuspid valve is normal in structure. There is mild tricuspid regurgitation. PULMONIC VALVE The pulmonic valve is not well visualized. There is mild pulmonic valvular regurgitation. GREAT VESSELS The aortic root is normal in size. PERICARDIAL EFFUSION There is no significant pericardial effusion. <Conclusion> Left ventricle systolic function is normal. The Ejection Fraction is 65-70%. Hypertensive heart disease. Diastolic dysfunction. There is mild aortic regurgitation. Mitral regurgitation is mild. There is mild tricuspid regurgitation. There is mild pulmonic valvular regurgitation.
[2018-06-03 01:21] VITALS: RESP 20; TEMP 97.9; O2SAT 100
--- NOTE | 2018-06-03 05:30 | HP ---
CHIEF COMPLIANT: Chest pain. HISTORY OF PRESENT ILLNESS: This is a 42-year-old female, nonsmoker, history of recently diagnosed diabetes three months ago, hypertension, hyperlipidemia. She is morbidly obese. She is compliant with her diet, medication and followup. She had upper respiratory symptoms, , and she did well and her respiratory symptoms resolved. She developed chest pain which is substernal, non-radiating, associated with diaphoresis, dizziness. Chest pain is exertional, as well as nonexertional but it gets worse upon moving. There is no positional component to it. There is no pleurisy. No dyspepsia. There is no nausea, vomiting or diarrhea. She denies any polyuria, polydipsia, polyphagia. She denies any hematuria or pyuria. She denies any sneezing, itchy eyes, itchy nose. She denies any abdominal pain. She denies any joint pain, hip pain. She denies any tingling, numbness, paresthesia. PAST MEDICAL HISTORY: Recently diagnosed diabetes, hypertension, hyperlipidemia, gastritis. SOCIAL HISTORY: Nonsmoker. Non EtOH user. CURRENT MEDICATIONS: At home, she is taking Metformin, omeprazole, Sudafed, Zofran, meclizine, Zestoretic and aspirin. PHYSICAL EXAMINATION: GENERAL: An middle-aged female in no acute distress. VITAL SIGNS: Blood pressure 125/85, pulse 87, respiratory rate 18, temperature 98. SKIN: No rashes. No bruises. No purpura. No petechiae. No ecchymosis. HEENT: Atraumatic and normocephalic. Negative pallor. Negative jaundice. Extraocular movements are intact. NECK: Supple. No JVD. No lymph node. No thyromegaly. No carotid bruits. CHEST WALL: Bilateral symmetrical expansion. No tenderness. No deformity. LUNGS: Bilaterally clear. No rales. No rhonchi. CVS: PMI not localized. S1 and S2, regular. 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 Cranial nerves II through XII are normal. Power 5/5 x4. Plantars are downgoing. ABDOMEN: Soft and nontender. Bowel sounds are positive. ASSESSMENT: 1. Chest pain, rule out myocardial infraction. Myocardial infraction has been ruled out, the patient has positive troponin with multiple risk factors. The patient is for cardiac catheterization. 2. Type 2 diabetes. 3. Hypertension. PLAN: Admit. Detailed orders are written. Seen and examined. Werner Garza MD
[2018-06-03] MEDS: (Novolin R) Insulin Human Regular 100 units/ml vial SC SCH ×2 (08:05→12:23)
[2018-06-03 09:26] VITALS: BP 138/84
[2018-06-03] MEDS: Metoprolol Succinate 25 mg XL Tab PO SCH (09:27)
[2018-06-03] MEDS: Pantoprazole 40 mg EC Tab PO SCH (09:27)
[2018-06-03] MEDS: Enoxaparin 120 mg Syringe SC SCH (09:27)
[2018-06-03 12:48] VITALS: PULSE 101
--- NOTE | 2018-06-03 13:16 | CP.PCM.PN ---
Subjective - Date & Time of Evaluation Date of Evaluation: 06/03/18 Time of Evaluation: 13:14 - Subjective Subjective: feels good.results of cath explained. Objective - Vital Signs/Intake and Output Vital Signs (last 24 hours): Temp Pulse Resp BP Pulse Ox 97.9 F 101 H 20 138/84 100 06/03/18 00:00 06/03/18 12:00 06/03/18 00:00 06/03/18 09:26 06/03/18 00:00 - Medications Medications: Current Medications Aspirin (Aspirin Chewable) 81 mg PO DAILY [facility] Last Admin: 06/03/18 09:27 Dose: 81 mg Enoxaparin Sodium (Lovenox) 120 mg SC Q12 [facility] Last Admin: 06/03/18 09:27 Dose: 120 mg Hydrochlorothiazide (Microzide) 12.5 mg PO DAILY [facility] Last Admin: 06/03/18 09:27 Dose: 12.5 mg Influenza Virus Vaccine (Flucelvax Quad [id number] Syr) 60 mcg IM .ONCE ONE Stop: 06/04/18 12:01 Insulin Human Regular (Novolin R) 0 unit SC [facility]; Protocol Last Admin: 06/03/18 12:23 Dose: 8 units Lisinopril (Zestril) 10 mg PO DAILY [facility] Last Admin: 06/03/18 09:26 Dose: 10 mg Meclizine HCl (Antivert) 25 mg PO TID PRN PRN Reason: Dizziness Metoprolol Succinate (Toprol Xl) 25 mg PO DAILY [facility] Last Admin: 06/03/18 09:27 Dose: 25 mg Ondansetron HCl (Zofran Odt) 4 mg PO TID PRN PRN Reason: Nausea/Vomiting Pantoprazole Sodium (Protonix Ec Tab) 40 mg PO DAILY [facility] Last Admin: 06/03/18 09:27 Dose: 40 mg Pneumococcal Polyvalent Vaccine (Pneumovax 23 Vaccine) 0.5 ml IM .ONCE ONE Stop: 06/04/18 12:01 Rosuvastatin Calcium (Crestor) 20 mg PO [facility] Last Admin: 06/02/18 21:12 Dose: 20 mg - Labs Labs: 06/02/18 11:29 06/02/18 11:29 PT 11.3 SECONDS (9.7-12.2) 06/01/18 14:06 INR 1.0 06/01/18 14:06 APTT 26 SECONDS (21-34) 06/01/18 14:06 - Constitutional Appears: No Acute Distress - Head Exam Head Exam: NORMOCEPHALIC - Eye Exam Eye Exam: Normal appearance - Neck Exam Neck Exam: Normal Inspection - Respiratory Exam Respiratory Exam: Clear to Ausculation Bilateral - Cardiovascular Exam Cardiovascular Exam: REGULAR RHYTHM - GI/Abdominal Exam GI & Abdominal Exam: Soft - Extremities Exam Extremities Exam: absent: Pedal Edema - Neurological Exam Neurological Exam: Alert, Oriented x3 Assessment and Plan - Assessment and Plan (Free Text) Plan: diet,exercise,wt loss & control of all risk factors.endocrine eval adv.
--- NOTE | 2018-06-03 21:34 | CP.PCM.DIS ---
Provider - Provider Date of Admission: 06/01/18 17:29 Attending physician: Werner Garza MD Consults: 06/01/18 17:26 Physician Consult Stat Comment: chest pain, elevated troponin Consulting Provider: Agustin Mendoza Consulting Physician: Agustin Mendoza Reason for Consult: cardiology Additional Comments: spoken with 06/02/18 10:33 Cardiology Consult Routine Comment: cath Consulting Provider: Ross Lisa Consulting Physician: Ross Lisa Reason for Consult: cath Time Spent in preparation of Discharge (in minutes): 30 Hospital Course - Lab Results Lab Results: Most Recent Lab Values WBC 7.8 K/uL (4.8-10.8) 06/02/18 11:29 RBC 4.93 Mil/uL (3.80-5.20) 06/02/18 11:29 Hgb 15.0 g/dL (11.0-16.0) 06/02/18 11:29 Hct 45.2 % (34.0-47.0) 06/02/18 11:29 MCV 91.5 fL (81.0-99.0) 06/02/18 11:29 MCH 30.4 pg (27.0-31.0) 06/02/18 11:29 MCHC 33.2 g/dL (33.0-37.0) 06/02/18 11:29 RDW 13.0 % (11.5-14.5) 06/02/18 11:29 Plt Count 297 K/uL (130-400) 06/02/18 11:29 MPV 9.8 fL (7.2-11.7) 06/02/18 11:29 Neut % (Auto) 66.2 % (50.0-75.0) 06/02/18 11:29 Lymph % (Auto) 27.2 % (20.0-40.0) 06/02/18 11:29 [place] % (Auto) 4.6 % (0.0-10.0) 06/02/18 11:29 Eos % (Auto) 1.8 % (0.0-4.0) 06/02/18 11:29 Baso % (Auto) 0.2 % (0.0-2.0) 06/02/18 11:29 Neut # (Auto) 5.1 K/uL (1.8-7.0) 06/02/18 11:29 Lymph # (Auto) 2.1 K/uL (1.0-4.3) 06/02/18 11:29 [place] # (Auto) 0.4 K/uL (0.0-0.8) 06/02/18 11:29 Eos # (Auto) 0.1 K/uL (0.0-0.7) 06/02/18 11:29 Baso # (Auto) 0.0 K/uL (0.0-0.2) 06/02/18 11:29 PT 11.3 SECONDS (9.7-12.2) 06/01/18 14:06 INR 1.0 06/01/18 14:06 APTT 26 SECONDS (21-34) 06/01/18 14:06 D-Dimer, Quantitative 292 ng/mlDDU (0-243) H 06/01/18 14:06 Sodium 132 mmol/L (132-148) 06/02/18 11:29 Potassium 4.2 mmol/L (3.6-5.2) 06/02/18 11:29 Chloride 96 mmol/L (98-107) L 06/02/18 11:29 Carbon Dioxide 22 mmol/L (22-30) 06/02/18 11:29 Anion Gap 18 (10-20) 06/02/18 11:29 BUN 15 mg/dL (7-17) 06/02/18 11:29 Creatinine 0.7 mg/dL (0.7-1.2) 06/02/18 11:29 Est GFR ( Amer) > 60 06/02/18 11:29 Est GFR (Non-Af Amer) > 60 06/02/18 11:29 POC Glucose (mg/dL) 360 mg/dL (65-110) H 06/03/18 11:20 Random Glucose 345 mg/dL (65-105) H D 06/02/18 11:29 Hemoglobin A1c 10.1 % (4.2-6.5) H D 06/02/18 05:59 Calcium 9.1 mg/dl (8.6-10.4) 06/02/18 11:29 Total Bilirubin 0.9 mg/dL (0.2-1.3) 06/02/18 11:29 AST 37 U/L (14-36) H D 06/02/18 11:29 ALT 21 U/L (9-52) 06/02/18 11:29 Alkaline Phosphatase 91 U/L (38-126) 06/02/18 11:29 Total Creatine Kinase 106 U/L (30-135) 06/02/18 05:59 CK-MB (Mass) 1.25 ng/mL (0.0-3.38) 06/02/18 05:59 Troponin I 0.0850 ng/mL (0.00-0.120) 06/02/18 05:59 NT-Pro-B Natriuret Pep 19.1 pg/mL (0-450) 06/01/18 14:06 Total Protein 7.7 g/dL (6.3-8.3) 06/02/18 11:29 Albumin 4.2 g/dL (3.5-5.0) 06/02/18 11:29 Globulin 3.4 gm/dL (2.2-3.9) 06/02/18 11:29 Albumin/Globulin Ratio 1.2 (1.0-2.1) 06/02/18 11:29 Triglycerides 1089 mg/dL (0-149) H 06/02/18 05:59 Cholesterol 179 mg/dL (0-199) 06/02/18 05:59 LDL Cholesterol Direct 46 mg/dL (0-129) 06/02/18 05:59 HDL Cholesterol 27 mg/dL (30-70) L 06/02/18 05:59 Urine Color Mary (YELLOW) 06/01/18 14:17 Urine Clarity Hazy (Clear) 06/01/18 14:17 Urine pH 5.0 (5.0-8.0) 06/01/18 14:17 Ur Specific [place] 1.028 (1.003-1.030) 06/01/18 14:17 Urine Protein 2+ mg/dL (NEGATIVE) H 06/01/18 14:17 Urine Glucose (UA) 1+ mg/dL (Normal) 06/01/18 14:17 Urine Ketones Trace mg/dL (NEGATIVE) 06/01/18 14:17 Urine Blood Negative (NEGATIVE) 06/01/18 14:17 Urine Nitrate Negative (NEGATIVE) 06/01/18 14:17 Urine Bilirubin Negative (NEGATIVE) 06/01/18 14:17 Urine Urobilinogen Normal mg/dL (0.2-1.0) 06/01/18 14:17 Ur Leukocyte Esterase Neg Bjorn/uL (Negative) 06/01/18 14:17 Urine WBC (Auto) 2 /hpf (0-5) 06/01/18 14:17 Urine RBC (Auto) 7 /hpf (0-3) H 06/01/18 14:17 Ur Squamous Epith Cells 26 /hpf (0-5) H 06/01/18 14:17 Urine HCG, Qual Negative (NEGATIVE) 06/01/18 14:17 Discharge Exam - Head Exam Head Exam: NORMOCEPHALIC Discharge Plan - Discharge Medications Prescriptions: Rosuvastatin Calcium [Crestor] 20 mg PO HS #30 tab Insulin Glargine,Hum.rec.anlog [Lantus Solostar] 14 unit SQ HS 30 Days insuln.pen Nlbih-7-Bgsf Ethyl Esters 1 GM [Lovaza] 2 gm PO BID #120 sgl [place], Disposable [[place]] 1 each MC DAILY 30 Days dis.needle Metoprolol Succinate XL [Toprol XL] 50 mg PO DAILY #30 tab - Follow Up Plan Condition: GOOD Disposition: HOME/ ROUTINE Instructions: Heart Healthy Diet, Diabetes Exchange Diet, Cardiac Catheterization (DC), Diabetes Diet , Chest Pain (DC), Metoprolol, Rosuvastatin, Insulin Glargine Additional Instructions: Please follow up with Dr. Garza office in 1 week ( follow up visit) Please continue medication as per Med. re PLEASE TAKE METFORMIN SATURDAY MORNING Referrals: Werner Garza MD [Staff Provider] - 06/10/18 1:00 pm
--- NOTE | 2018-06-03 23:58 | CARD ---
APPROVED REPORT Date of service: 06/01/2018 EKG Measurement Heart [id number] [place] [id number] <Conclusion> Normal sinus rhythm Possible Left atrial enlargement Left ventricular hypertrophy Abnormal ECG
--- NOTE | 2018-06-03 23:59 | CARD ---
APPROVED REPORT Date of service: 06/01/2018 EKG Measurement Heart [id number] <Conclusion> Normal sinus rhythm Possible Left atrial enlargement Left ventricular hypertrophy Abnormal ECG
--- NOTE | 2018-06-04 01:50 | DS ---
DISCHARGE DIAGNOSES: 1. Noncoronary chest pain. 2. Type 2 diabetes. 3. Hypertension. 4. Hyperlipidemia. HISTORY OF PRESENT ILLNESS AND HOSPITAL COURSE: This is a 42-year-old female with a history of morbid obesity, diabetes, hypertension, hyperlipidemia. She is compliant with her diet, medication, and followup. She came in with substernal chest pain, dull, non-radiating, not associated with diaphoresis with very high sugar and high triglycerides. The patient was admitted to the floor. Cardiac enzymes were borderline positive for cardiac cath, nonobstructive CAD and the patient is for discharge. Condition upon discharge is stable. PHYSICAL EXAMINATION: VITAL SIGNS: Blood pressure 138/84, pulse 105, respiratory rate 20. PLAN: The patient is feeling well. She is for discharge. Werner Garza MD
[2018-06-04] MEDS ORDERED: Influenza Vaccine 60 mcg/0.5 mL SYR (4YR UP) IM ONE (12:00)
[2018-06-04] MEDS ORDERED: Pneumococcal 23-Valent Vaccine IM ONE (12:00)
--- NOTE | 2018-06-04 19:09 | CARDCATH ---
PROCEDURE DATE: 06/02/2018 PROCEDURES: 1. Left heart catheterization. 2. Coronary angiogram. CLINICAL INDICATIONS: 1. . 2. Elevated troponin. 3. Hypertension. 4. Diabetes. 5. Hyperlipidemia. REFERRING PHYSICIANS: 1. Agustin Mendoza MD 2. Werner Garza MD PERFORMING PHYSICIAN: Ross Lisa MD DESCRIPTION OF PROCEDURE: After informed consent, the patient was prepped and draped in the usual sterile fashion. A 2% lidocaine was given in the right wrist for local anesthesia. Using micropuncture technique, a 6-Icelandic sheath was introduced into the right radial artery. A JR-4 6-Icelandic diagnostic catheter was inserted into the left ventricle across the aortic valve. LV end-diastolic pressure was measured. Contrast was injected and LV angiogram was done. Then, the catheter was pulled back across the aortic valve. Gradient across the aortic valve was measured. Then, the same catheter engaged into the right coronary artery. Contrast was injected and right coronary angiogram was done. The catheter was exchanged to 6-Icelandic [place] catheter. The [place] catheter was engaged into left main coronary artery. Contrast was injected and left coronary angiogram was done. The patient tolerated the procedure well. Postprocedure, Terumo radial band applied to right wrist with excellent hemostasis. Radiological supervision and radiological interpretation of the coronary imaging was done. FINDINGS: 1. Left main coronary artery is patent. 2. Proximal left anterior descending artery has intramuscular course with 20% concentric stenosis. Mid and distal left anterior descending artery is patent. Diagonal branches are patent. 3. Left circumflex, coronary artery, and obtuse marginal branches are patent. 4. Right coronary artery is dominant and patent. 5. Left ventricular ejection fraction is approximately 60%. No wall motion abnormality is noted. End diastolic pressure is 20. No gradient across the aortic valve. IMPRESSION: 1. Nonobstructive coronaries. 2. Normal left ventricular systolic function. Recommend medical management. Ross Lisa MD
== END 2018-06-03 14:21 | disposition home or self-care (01) | DRG 125 ==
LOC: C.ER 13:27 → C.9E 17:29 → C.5S 18:13 → C.9E 18:45 → C.6T 18:52
PROVIDERS: ADMIT Internal Medicine; ATTEND Internal Medicine
PROC: 4A023N7 Measurement of Cardiac Sampling and Pressure, Left Heart, Percutaneous Approach (ICD-10-PCS; principal; 2018-06-01)
PROC: B2151ZZ Fluoroscopy of Left Heart using Low Osmolar Contrast (ICD-10-PCS; 2018-06-01)
PROC: B2111ZZ Fluoroscopy of Multiple Coronary Arteries using Low Osmolar Contrast (ICD-10-PCS; 2018-06-01)
DX: I25.10 Atherosclerotic heart disease of native coronary artery without angina pectoris (principal); E11.65 Type 2 diabetes mellitus with hyperglycemia; K29.70 Gastritis, unspecified, without bleeding; I10 Essential (primary) hypertension; E66.01 Morbid (severe) obesity due to excess calories; E78.00 Pure hypercholesterolemia, unspecified; E78.5 Hyperlipidemia, unspecified

== ENCOUNTER 2018-06-05 14:37 | Emergency (ER) | payer MEDICAID ==
[2018-06-05 14:57] VITALS: RESP 18
[2018-06-05 15:57] LABS: BASO # 0.1 K/uL (0.0-0.2); BASO % 1.1 % (0.0-2.0); EOS # 0.1 K/uL (0.0-0.7); EOS % 1.7 % (0.0-4.0); HEMOGLOBIN 13.8 g/dL (11.0-16.0); LYMPH # 2.5 K/uL (1.0-4.3); LYMPH % 31.5 % (20.0-40.0); MEAN CELL VOLUME 90.1 fL (81.0-99.0); MEAN CORPUSCULAR HEMOGLOBIN 30.5 pg (27.0-31.0); MEAN CORPUSCULAR HGB CONC 33.8 g/dL (33.0-37.0); MEAN PLATELET VOLUME 9.9 fL (7.2-11.7); MONO # 0.5 K/uL (0.0-0.8); MONO % 6.5 % (0.0-10.0); NEUT # 4.7 K/uL (1.8-7.0); NEUT % 59.2 % (50.0-75.0); NRBC % 0.1 % (0.0-2.0); RBC 4.52 Mil/uL (3.80-5.20); RED CELL DISTRIBUTION WIDTH 12.8 % (11.5-14.5); WHITE BLOOD COUNT 7.9 K/uL (4.8-10.8)
--- NOTE | 2018-06-05 16:00 | C.PDOC ---
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 Patient has history of non ST elevation [place] and she was admitted in [facility] from 06/01/18-06/04/18. During her admission, her troponin levels decreased and she a normal cardiac catheterization with . Patient states that she has good compliance with her medications including PPI for acid reflux. Denies having SOB, fever,chills, nausea, vomiting, and leg swelling. Time Seen by Provider: 06/05/18 15:35 Chief Complaint (Nursing): Chest Pain History Per: Patient History/Exam Limitations: no limitations Onset/Duration Of Symptoms: Days Current Symptoms Are (Timing): Still Present Severity: Moderate Past Medical History Reviewed: Historical Data, Nursing Documentation, Vital Signs Vital Signs: Last Vital Signs Temp 98.2 F 06/05/18 14:53 Pulse 82 06/05/18 14:53 Resp 18 06/05/18 14:53 BP Pulse Ox 95 06/05/18 14:53 - Medical History PMH: HTN Denies: Chronic Kidney Disease Surgical History: - [facility] Procedures FLUOROSCOPY OF LEFT HEART USING LOW OSMOLAR CONTRAST (06/01/18) FLUOROSCOPY OF MULT COR ART USING L OSM CONTRAST (06/01/18) MEASURE OF CARDIAC SAMPL & PRESSURE, L HEART, PERC APPROACH (06/01/18) Family History: States: No Known Family Hx - Social History Hx Tobacco Use: No Hx Alcohol Use: No Hx Substance Use: No - Immunization History Hx Tetanus Toxoid Vaccination: (unk) Hx Influenza Vaccination: No Hx Pneumococcal Vaccination: No Review Of Systems Except As Marked, All Systems Reviewed And Found Negative. Constitutional: Negative for: Fever, Chills Cardiovascular: Positive for: Chest Pain Respiratory: Negative for: Shortness of Breath Gastrointestinal: Negative for: Nausea, Vomiting Physical Exam - Physical Exam Appears: No Acute Distress, Other (smiling, obese) Skin: Normal Color, Warm Head: Atraumatic, Normacephalic Eye(s): bilateral: Normal Inspection Nose: Normal Oral Mucosa: Moist Neck: Supple Chest: Symmetrical, No Tenderness (positionally and digitally reproducible) Cardiovascular: Rhythm Regular Respiratory: Normal Breath Sounds, No Rales, No Rhonchi, No Wheezing Gastrointestinal/Abdominal: Normal Exam, Soft, No Tenderness, No Guarding, No Rebound Neurological/Psych: Oriented x3, Normal Speech ED Course And Treatment - Laboratory Results Result Diagrams: 06/05/18 15:49 06/05/18 15:49 Lab Interpretation: Normal (trop neg.) ECG: Interpreted By Me, Viewed By Me ECG Rhythm: Sinus Rhythm ECG Interpretation: Normal Interpretation Of ECG: NSR with T wave inversions in Lead III Rate From EC O2 Sat by Pulse Oximetry: 95 (RA) Pulse Ox Interpretation: Normal - Radiology CXR: Interpreted by Me CXR Interpretation: Yes: No Acute Disease - Other Rad CXR X-Ray: Viewed By Me, Read By Radiologist Interpretation: Date of service: 06/05/2018. PROCEDURE: CHEST RADIOGRAPH, 1 VIEW. HISTORY: SOB. COMPARISON: 12/02/2017. FINDINGS: LUNGS: The lungs are well inflated and clear. PLEURA: No pneumothorax or pleural effusion. CARDIOVASCULAR: The heart is normal in size. No aortic atherosclerotic calcifications present. OSSEOUS STRUCTURES: Within normal limits for the patient's age. VISUALIZED UPPER ABDOMEN: Normal. OTHER FINDINGS: None. IMPRESSION: No active pulmonary disease. Reevaluation Time: 16:52 Reassessment Condition: Unchanged (remains pain free) Medical Decision Making Medical Decision Making: pt with h/o GERD and central obesity, suggests GERD and/or hiatal hernia as queen sient upper chest discomfort without related cardiac s/s already on PPI GERD diet and weight loss encouraged. Clean card cath yesterday normal ekg and trop now though Syndrome X, ok for d/c and opt f/ul Disposition Doctor Will See Patient In The: Office Counseled Patient/Family Regarding: Studies Performed, Diagnosis - Disposition Disposition: HOME/ ROUTINE Disposition Time: 16:54 Condition: GOOD Forms: [employer] (Tajik) - Clinical Impression Clinical Impression: Chest discomfort - Scribe Statement The provider has reviewed the documentation as recorded by the Bree Flowers Provider Attestation: All medical record entries made by the Wiltonibe were at my direction and personally dictated by me. I have reviewed the chart and agree that the record accurately reflects my personal performance of the history, physical exam, medical decision making, and the department course for this patient. I have also personally directed, reviewed, and agree with the discharge instructions and disposition.
--- NOTE | 2018-06-05 16:07 | RAD ---
Date of service: 06/05/2018 PROCEDURE: CHEST RADIOGRAPH, 1 VIEW HISTORY: SOB COMPARISON: 12/02/2017. FINDINGS: LUNGS: The lungs are well inflated and clear. PLEURA: No pneumothorax or pleural effusion. CARDIOVASCULAR: The heart is normal in size. No aortic atherosclerotic calcifications present. OSSEOUS STRUCTURES: Within normal limits for the patient's age. VISUALIZED UPPER ABDOMEN: Normal. OTHER FINDINGS: None. IMPRESSION: No active pulmonary disease.
[2018-06-05 16:10] LABS: ALB/GLOB RATIO 1.3 (1.0-2.1); ALBUMIN 4.1 g/dL (3.5-5.0); ALT/SGPT 32 U/L (9-52); AST/SGOT 51 U/L (14-36); BLOOD UREA NITROGEN 10 mg/dL (7-17); CALCIUM 8.8 mg/dl (8.6-10.4); GFR NON-AFRICAN AMERICAN > 60
[2018-06-05 16:20] LABS: B-TYPE NATRIURETIC PEPTIDE 35.7 pg/mL (0-450)
[2018-06-05 17:02] VITALS: BP 139/87; PULSE 81; TEMP 99; O2SAT 99
--- NOTE | 2018-06-06 16:50 | CARD ---
APPROVED REPORT Date of service: 06/05/2018 EKG Measurement Heart [id number] <Conclusion> Sinus rhythm Minimal voltage criteria for LVH, may be normal variant Inferior infarct, age undetermined Cannot rule out Anterior infarct, age undetermined Abnormal ECG
== END 2018-06-05 17:15 | disposition home or self-care (01) ==
LOC: C.ER 14:37
DX: R07.89 Other chest pain (principal)